=== PATIENT | male | born 1955 | race Asian ===

== ENCOUNTER 2025-06-22 06:43 | Day surgery (SDC) | payer OTHER, SELFPAY ==
[2025-06-22] VITALS (10 sets, daily range): BP systolic 103–178; BP diastolic 70–91
[2025-06-22] MEDS: LOW STRENGTH ASPIRIN 81 MG PO (07:14)
--- NOTE | 2025-06-22 09:06 | ITS.CL.PN ---
[facility] - Procedure Note
Procedure
Procedure Note:
CARDIAC CATHETERIZATION REPORT
Date of Procedure: 06/22/2025
Referring: Dr. Yemi Fuentes MD
Indication: typical angina
PROCEDURE(S)
1. left heart catheterization
2. coronary angiography
ACCESS: 6F right radial artery (closure: radial band)
CATHETERS
1. 6F JR4
2. 6F JL3.5
MODERATE SEDATION: 25 minutes of moderate sedation was utilized. An independent medical appliance maker was present to assist with and help manage the patient's level of consciousness and physiologic status.
HEMODYNAMIC DATA
LV 115/8 (EDP 12) mmHg
AO 117/75 (mean 93) mmHg
CORONARY ANGIOGRAPHY
Dominance: Right
LM: Large, normal
LAD: Large vessel giving rise to a large branching D1 and wrapping around the apex. There are trivial luminal irregularities only.
LCx: Large vessel giving rise to a moderate caliber high rising OM1, large OM2, and moderate caliber LPL. There are trivial luminal irregularities only.
RCA: Large vessel giving rise to a moderate caliber RPDA, moderate caliber RPL1, small RPL2, and moderate caliber RPL3. There are trivial luminal irregularities only.
RADIATION: dose 215 mGy; DAP 13 Gy*cm2; fluoroscopy time 2.3 min
CONCLUSIONS
1. Trivial luminal irregularities only in a right dominant system.
2. Normal LV filling pressure and no aortic stenosis.
RECOMMENDATIONS
1. Primary prevention of coronary artery disease.
2. Workup for etiology of ANOCA, possibly related to microvascular angina in setting of HCM.
Copy to: Dr. Yemi Fuentes MD (consultant electronics); Dr. Jorge Varela MD (PCP)
Signed: Papa Hairston MD, PhD
[2025-06-22] MEDS: NSS 1000 IV (09:15)
== END 2025-06-22 11:30 | disposition home or self-care (01) ==
LOC: CATH 06:43
PROVIDERS: ATTENDING PHYSICIAN Student in an Organized Health Care Education/Training Program; FAMILY PHYSICIAN Internal Medicine; OTHER PHYSICIAN Internal Medicine Cardiovascular Disease
DX: I20.89 Other forms of angina pectoris (principal); I42.2 Other hypertrophic cardiomyopathy
CPT/HCPCS: 99152; 99153; 93458; C1769; C1894; Q9967